=== PATIENT | male | born 1970 | race Caucasian/White ===

== ENCOUNTER 2019-01-30 18:07 | Emergency (ER) | payer BC ==
--- NOTE | 2019-01-30 18:14 | ER Report ---
History and Physical Time Seen By MD: 18:14 HPI/ROS CHIEF COMPLAINT: Chest pain HISTORY OF PRESENT ILLNESS: This is a 48-year-old male. Having chest tightness for 4 days now. Left-sided chest radiating to the left arm and shoulder. No shortness of breath. He has had a cold that started about 5 days ago with mild cough but no fevers. Symptoms actually improved with exertion and he did go hiking the other day and felt good. Denies any nausea or vomiting. He did have similar symptoms in 2011 with a full workup including stress testing and at that time they felt it was due to increased stress. He is under some increased stress here with starting a new job recently. Denies any other medical problems such as high blood pressure, cholesterol, diabetes or prior heart problems. His dad does have a significant cardiac history. Patient does use chew tobacco Allergies: Coded Allergies: Penicillins (Verified Allergy, Mild, 01/30/19) Reviewed Nurses Notes: Yes Constitutional Vital Sign - Last 24 Hours 01/30/19 01/30/19 01/30/19 01/30/19 18:09 18:10 18:37 18:52 Temp 97.9 Pulse 61 50 Resp 16 24 B/P (MAP) 158/89 (112) 158/89 138/91 (107) Pulse Ox 93 94 O2 Delivery Room Air Physical Exam General Appearance: The patient is alert. No acute distress. Non-toxic in appearance. Eyes: Pupils are equal, round. No pallor, injection or icterus. ENT: Mucous membranes are moist. Neck: Supple and non tender. Respiratory: Lungs are clear to auscultation. Cardiovascular: Regular rate and rhythm. No murmurs, gallops or rubs. Normal capillary refill. Gastrointestinal: Abdomen is soft and non tender. Nondistended. Neurological: Alert and oriented x3. No focal neurologic deficit Skin: Warm and dry. Musculoskeletal: No tenderness in palpation of the back and spine. DIFFERENTIAL DIAGNOSIS: After history and physical exam, differential diagnosis was considered for chest pain including but not limited to myocardial ischemia, pericarditis pulmonary embolus, chest wall pain, pleural inflammation and pulmonary infectious causes. Medical Decision Making Data Points Result Diagram: 01/30/19 1814 01/30/19 1814 Laboratory Hematology Test 01/30/19 18:14 Red Blood Count 5.73 M/uL (4.00-5.60) Mean Corpuscular Volume 86.0 fL (80.0-96.0) Mean Corpuscular Hemoglobin 29.7 pg (26.0-33.0) Mean Corpuscular Hemoglobin Concent 34.5 g/dL (32.0-36.0) Red Cell Distribution Width 13.1 % (11.5-14.5) Mean Platelet Volume 8.9 fL (7.2-11.1) Neutrophils (%) (Auto) 59.6 % (39.4-72.5) Lymphocytes (%) (Auto) 31.6 % (17.6-49.6) Monocytes (%) (Auto) 6.0 % (4.1-12.4) Eosinophils (%) (Auto) 2.2 % (0.4-6.7) Basophils (%) (Auto) 0.6 % (0.3-1.4) Nucleated RBC Relative Count (auto) 0.1 /100WBC Neutrophils # (Auto) 4.9 K/uL (2.0-7.4) Lymphocytes # (Auto) 2.6 K/uL (1.3-3.6) Monocytes # (Auto) 0.5 K/uL (0.3-1.0) Eosinophils # (Auto) 0.2 K/uL (0.0-0.5) Basophils # (Auto) 0.0 K/uL (0.0-0.1) Nucleated RBC Absolute Count (auto) 0.01 K/uL D-Dimer Quantitative (PE/DVT) < 0.27 ug/ml (0-0.50) Sodium Level 140 mmol/L (137-145) Potassium Level 3.7 mmol/L (3.5-5.0) Chloride Level 102 mmol/L (98-107) Carbon Dioxide Level 28 mmol/L (22-30) Blood Urea Nitrogen 18 mg/dl (9-21) Creatinine 1.00 mg/dl (0.66-1.25) Glomerular Filtration Rate Calc > 60.0 Random Glucose 86 mg/dl (75-110) Calcium Level 9.5 mg/dl (8.4-10.2) Total Bilirubin 0.3 mg/dl (0.2-1.3) Aspartate Amino Transf (AST/SGOT) 47 U/L (0-35) Alanine Aminotransferase (ALT/SGPT) 90 U/L (0-56) Alkaline Phosphatase 76 U/L (0-126) Troponin I < 0.012 ng/ml Total Protein 7.7 g/dl (6.3-8.2) Albumin 4.6 g/dl (3.5-5.0) Chemistry Test 01/30/19 18:14 White Blood Count 8.2 k/uL (4.5-11.0) Red Blood Count 5.73 M/uL (4.00-5.60) Hemoglobin 17.0 g/dL (14.0-18.0) Hematocrit 49.3 % (42.0-52.0) Mean Corpuscular Volume 86.0 fL (80.0-96.0) Mean Corpuscular Hemoglobin 29.7 pg (26.0-33.0) Mean Corpuscular Hemoglobin Concent 34.5 g/dL (32.0-36.0) Red Cell Distribution Width 13.1 % (11.5-14.5) Platelet Count 185 K/uL (150-450) Mean Platelet Volume 8.9 fL (7.2-11.1) Neutrophils (%) (Auto) 59.6 % (39.4-72.5) Lymphocytes (%) (Auto) 31.6 % (17.6-49.6) Monocytes (%) (Auto) 6.0 % (4.1-12.4) Eosinophils (%) (Auto) 2.2 % (0.4-6.7) Basophils (%) (Auto) 0.6 % (0.3-1.4) Nucleated RBC Relative Count (auto) 0.1 /100WBC Neutrophils # (Auto) 4.9 K/uL (2.0-7.4) Lymphocytes # (Auto) 2.6 K/uL (1.3-3.6) Monocytes # (Auto) 0.5 K/uL (0.3-1.0) Eosinophils # (Auto) 0.2 K/uL (0.0-0.5) Basophils # (Auto) 0.0 K/uL (0.0-0.1) Nucleated RBC Absolute Count (auto) 0.01 K/uL D-Dimer Quantitative (PE/DVT) < 0.27 ug/ml (0-0.50) Glomerular Filtration Rate Calc > 60.0 Calcium Level 9.5 mg/dl (8.4-10.2) Total Bilirubin 0.3 mg/dl (0.2-1.3) Aspartate Amino Transf (AST/SGOT) 47 U/L (0-35) Alanine Aminotransferase (ALT/SGPT) 90 U/L (0-56) Alkaline Phosphatase 76 U/L (0-126) Troponin I < 0.012 ng/ml Total Protein 7.7 g/dl (6.3-8.2) Albumin 4.6 g/dl (3.5-5.0) Coagulation Test 01/30/19 18:14 D-Dimer Quantitative (PE/DVT) < 0.27 ug/ml EKG/Imaging EKG Interpretation 12 lead EKG: Rhythm: Sinus bradycardia, rate 54 [place]: normal QRS: normal ST segments: normal Imaging Examination: CHEST SINGLE AP Comparison: None. History: Chest pain Findings: Cardiac and hilar contour size is within normal limits. No consolidation, nodule, or peribronchial inflammation. No pneumothorax, edema, or effusion. Osseous structures are intact. IMPRESSION: No findings of acute cardiopulmonary disease. Report Dictated By: Kip Abdullahi MD at 01/30/2019 6:39 PM ED Course/Re-evaluation Clinical Indication for ER IV: IV Access ED Course EKG unremarkable as noted above. Chest xray obtained and negative. Has normal labs. Reviewed all this with the patient. Given time frame of pain, repeat labs were not needed. Patient to follow-up with primary care. See instructions below. Decision to Disposition Date: Jan 30, 2019 Decision to Disposition Time: 18:56 Depart Departure Latest Vital Signs Vital Signs Date Time Temp Pulse Resp B/P (MAP) Pulse Ox O2 Delivery O2 Flow Rate FiO2 01/30/19 18:52 138/91 (107) 01/30/19 18:37 50 24 94 01/30/19 18:10 97.9 Room Air Impression: Primary Impression: Chest pain Condition: Improved Disposition: HOME OR SELF-CARE Patient Instructions: Chest Pain (ED) Additional Instructions: On evaluation tonight, we did not find a dangerous cause for chest tightness and pain. No sign of heart attack, blood clots, pneumonia, or other dangerous problem. Consider follow-up with primary care for further evaluation including consideration for a stress test. Pain can come from inflammation in the lungs or chest wall from your recent cold symptoms. We recommend over the counter anti-inflammatories for this such as Ibuprofen or Aleve. GI related symptoms can cause these symptom, and Zantac or Pepcid can be used to help with heartburn or acid. Stress can cause these symptoms as well. Problem Qualifiers Primary Impression: Chest pain Chest pain type: unspecified Qualified Codes: R07.9 - Chest pain, unspecified JUAN PABLO LEMUS MD Jan 30, 2019 18:14
[2019-01-30] MEDS ORDERED: NS(*) 0.9% 1000 ML BAG 1,000 ML IV ONE (18:23)
[2019-01-30] MEDS ORDERED: ASPIRIN 81 MG CHEW PO ONE (18:25)
[2019-01-30 18:30] LABS: PLATELET COUNT, AUTOMATED 185 K/uL (150-450)
--- NOTE | 2019-01-30 18:31 | EKG ---
FACILITY: [facility] PATIENT NAME: EMIL CALLAHAN : [id number] MR: [id number] V: [id number] EXAM DATE: ORDERING PHYSICIAN: JUAN PABLO LEMUS TECHNOLOGIST: JILL Test Reason : CP Blood Pressure : / mmHG Vent. Rate : 054 BPM Atrial Rate : 054 BPM P-R Int : 144 ms QRS Dur : 110 ms QT Int : 450 ms P-R-T Axes : 041 030 029 degrees QTc Int : 426 ms Sinus bradycardia Otherwise normal ECG No previous ECGs available Confirmed by Jaron Alegre ([id number]) on 01/31/2019 6:28:49 AM Referred By: MARIAH Confirmed By:Jaron Lombardi
--- NOTE | 2019-01-30 18:45 | RADIOLOGY IMAGING REPORT ---
FACILITY: [facility] [place] PATIENT NAME: Jonas Landeros : 1970 MR: [id number] V: [id number] EXAM DATE: ORDERING PHYSICIAN: JUAN PABLO LEMUS TECHNOLOGIST: Location: [facility] Patient: Jonas Landeros : 1970 Visit/Account:[id number] Date of Sevice: 01/30/2019 Examination: CHEST SINGLE AP Comparison: None. History: Chest pain Findings: Cardiac and hilar contour size is within normal limits. No consolidation, nodule, or peribr onchial inflammation. No pneumothorax, edema, or effusion. Osseous structures are intact. IMPRESSION: No findings of acute cardiopulmonary disease. Report Dictated By: Kip Abdullahi MD at 01/30/2019 6:39 PM Report E-Signed By: Kip Abdullahi MD at 01/30/2019 6:41 PM WSN:[id number]
[2019-01-30 18:52] VITALS: BP 138/91
== END 2019-01-30 19:03 | disposition home or self-care (01) ==
LOC: ER 18:09
DX: R07.9 Chest pain, unspecified (principal)
CPT/HCPCS: 71045; 84484; 85025; 85379; 93005; 96360; 99284; J7030; 82040; 82247; 82310; 82374; 82435; 82565; 82947; 84075; 84132; 84155; 84295; 84450; 84460; 84520

== ENCOUNTER → 2019-04-21 | Outpatient (CLI) | payer BC ==
[~2019-04-21] MED LIST: BENZ200C15 PO; PRED20TA6 PO
[2019-04-21 15:56] LABS: PLATELET COUNT, AUTOMATED 181 K/uL (150-450)
== END ==
LOC: LAB 15:34
PROVIDERS: ATTEND Nurse Practitioner Primary Care
DX: R05 Cough (principal)
CPT/HCPCS: 36415; 82040; 82247; 82310; 82374; 82435; 82565; 82947; 84075; 84132; 84155; 84295; 84450; 84460; 84520; 85025